=== PATIENT | female | born 1955 | race African-American/Black ===

== ENCOUNTER 2016-10-07 13:00 | Emergency (ER) | payer MEDICARE, OTHER ==
[~2016-10-07] VITALS: Wt 70.0 kg
[~2016-10-07 13:00] MED LIST: AMLO-145; ASPI-650; CARI350T29; HYDR-762 PO; HYDR-906 PO; MONT10TA21; ONDA4TAB35 PO; PARO40TA79; [UNRECOGNIZED DRUG - CODE]
== END 2016-10-07 15:59 | disposition left against medical advice (07) ==
LOC: E/R 13:00
DX: Z53.21 Procedure and treatment not carried out due to patient leaving prior to being seen by health care provider (principal)

== ENCOUNTER 2017-05-20 09:33 | Emergency (ER) | payer MEDICARE, OTHER ==
[~2017-05-20] VITALS: Ht 157.5 cm; Wt 76.5 kg
[2017-05-20 09:37] VITALS: Ht 157.5 cm; Wt 76.5 kg
--- NOTE | 2017-05-20 15:49 | ERD ---
ER Documentation Chief Complaint Date/Time DATE: 05/20/17 TIME: 15:44 Chief Complaint cwp x 2 days HPI Patient is a 61-year-old female who presents with gradual onset, constant, moderate, dull right anterior chest wall pain for 2 days. She states that the pain radiates up to the lateral and posterior neck, to the right shoulder and upper arm. She reports having paresthesia and pain in the right ring finger. She denies trauma. She denies weakness or numbness. She denies shortness of breath. She denies cough. She denies fever. She denies radiation to her back. The patient takes tramadol for chronic back pain, but states that her PMD told her that she will need to get future prescriptions from her back doctor. ROS All systems reviewed and are negative except as per history of present illness. Medications Home Meds Active Scripts Tramadol HCl (Tramadol HCl) 50 Mg Tablet, 50 MG PO Q4 Y for PAIN, #20 TAB Prov:RENE SOTO MD 05/20/17 Hydrocodone/Acetaminophen ([place] 5-325 Tablet) 1 Each Tablet, 1 TAB PO Q6H Y for PAIN, #7 TAB Prov:SHON PRIEST DO 08/18/16 Ondansetron Hcl* (Zofran* ODT) 4 mg -ODT Tab.disper, 4 MG PO Q6 Y for NAUSEA AND /OR VOMITING, #30 TAB Prov:ARMIDA DAWSON MD 09/25/15 Hydrocodone Bit-Acetaminophen* ([place]*) 10-325 Mg Tablet, 1 TAB PO Q6 Y for PAIN , #12 TAB Prov:ARMIDA DAWSON MD 09/25/15 Reported Medications Amlodipine Besylate* (Amlodipine Besylate*) 5 Mg Tablet, 5 to 10 mg daily 07/06/12 Paroxetine Hcl* (Paroxetine*) 40 Mg Tablet, daily 07/06/12 Carisoprodol* (Carisoprodol*) 350 Mg Tablet, bid prn 07/06/12 Hydrocodone Bit/Acetaminophen (Hydrocodone-Apap 7.5-750 Mg Tb) 1 Tab Tablet, every 12 hr prn 07/06/12 Montelukast Sodium* (Singulair*) 10 Mg Tablet, daily 07/06/12 Aspirin (Aspirin) 81 Mg Tablet, daily 07/06/12 Allergies Allergies: Coded Allergies: No Known Drug Allergy (Verified Allergy, Unknown, 08/18/16) Uncoded Allergies: NONE (Allergy, Mild, 07/08/10) PMhx/Soc Past medical history: Hypertension, hyperlipidemia, myasthenia gravis, chronic back pain Past surgical history: Lower extremity Social history: There is alcohol occasionally, remote prior history of cocaine use, smokes tobacco History of Surgery: Yes (foot surgery, colonoscopy) Anesthesia Reaction: No Hx Neurological Disorder: No Hx Respiratory Disorders: Yes (bronchitis, asthma,) Hx Cardiac Disorders: Yes (htn) Hx Psychiatric Problems: Yes (depression) Hx Miscellaneous Medical Probl: Yes (high cholesterol) Hx Alcohol Use: Yes Hx Substance Use: Yes (marijuana) Hx Tobacco Use: Yes FmHx Family History: No coronary disease, No diabetes Physical Exam Vitals Vital Signs Date Time Temp Pulse Resp B/P Pulse Ox O2 Delivery O2 Flow Rate FiO2 05/20/17 17:41 72 18 128/68 98 Room Air 05/20/17 09:37 98.2 86 18 128/74 99 Physical Exam Const: Alert, no acute distress Head: Atraumatic Eyes: Normal Conjunctiva, No pallor, no icterus ENT: Normal External Ears, Nose and Mouth. Neck: Full range of motion..~ No meningismus.Right paraspinal cervical muscle tenderness and spasm. Resp: Clear to auscultation bilaterally, No wheezes, no rales Cardio: Regular rate and rhythm, no murmurs. Right anterior chest wall tenderness, palpation reproduces pain. Tenderness over the sternoclavicular joint without erythema, edema, or warmth. Abd: Soft, non tender, non distended. Normal bowel sounds Skin: No petechiae or rashes Back: No midline or flank tenderness Ext: No cyanosis, or edema Neur: Awake and alert, Strength and sensation full bilateral upper extremities Psych: Normal Mood and Affect Results 24 hrs Current Medications Medications (Trade) Dose Ordered Sig/Amanda Route PRN Reason Start Time Stop Time Status Last Admin Dose Admin Tramadol HCl (Ultram) 50 mg ONCE ONCE PO 05/20/17 16:00 05/20/17 16:01 DC 05/20/17 15:56 Procedures/MDM EKG read by me: Time 936, rate 81 Rhythm: Normal sinus [place]: Normal Intervals: Normal ST-T waves: no ischemic changes Ectopy: No Q-waves: No Impression: No evidence of ischemia or arrhythmia. Left ventricular hypertrophy, poor R-wave progression, possible left atrial enlargement MDM: Patient is a 61-year-old female who presents with pain to the upper right anterior chest radiating to the lateral and posterior neck and right shoulder. It is 100% reproducible with light palpation. She has particular tenderness over the sternoclavicular joints without signs of infection. Chest x-ray and EKG are unremarkable. There are no features concerning for aortic dissection or pulmonary embolism. The patient has history of chronic pain issues and is on has previously taken tramadol. She is currently out of medication. I will give her a prescription for tramadol, and advised to follow-up closely with her PMD and return to the ER for new or worsening symptoms. She has no signs of neurological deficit to suggest significant radiculopathy although she does have some paresthesias in one finger. No workup for ACS was indicated based upon the patient's history and exam. Departure Diagnosis: Primary Impression: Chest wall pain Condition: RENE Hemphill MD May 20, 2017 15:49
[2017-05-20] MEDS ORDERED: traMADol 50 MG TAB PO ONE (16:00)
--- NOTE | 2017-05-20 16:04 | RADRPT ---
PROCEDURE: XR Chest. CLINICAL INDICATION: Chest pain. TECHNIQUE: Single frontal view. COMPARISON: 07/06/2012. FINDINGS: The lungs are clear. The heart size is normal. There is no pleural effusion. There is no pneumothorax. IMPRESSION: 1. Normal chest radiograph. 2. No change from 07/06/2012. RPTAT: QQ .Satish Donahue MD, MD Date Time Electronically viewed and signed by .Satish Donahue MD, MD on 05/20/2017 16:04 .R/
[2017-05-20] MEDS ORDERED: TRAM50TA2 PO (16:24)
[2017-05-20 17:41] VITALS: BP 128/68; PULSE 72; RESP 18
== END 2017-05-20 17:43 | disposition home or self-care (01) ==
LOC: E/R 09:33
DX: R07.89 Other chest pain (principal); I10 Essential (primary) hypertension; F17.210 Nicotine dependence, cigarettes, uncomplicated; J45.909 Unspecified asthma, uncomplicated; R40.2142 Coma scale, eyes open, spontaneous, at arrival to emergency department; R40.2252 Coma scale, best verbal response, oriented, at arrival to emergency department; R40.2362 Coma scale, best motor response, obeys commands, at arrival to emergency department; Z79.82 Long term (current) use of aspirin
CPT/HCPCS: 71010; 93005

== ENCOUNTER 2017-08-19 07:58 | Emergency (ER) | payer MEDICARE, OTHER ==
[~2017-08-19] VITALS: Ht 157.5 cm; Wt 78.0 kg
[~2017-08-19 07:58] MED LIST changes: +TRAM50TA2 PO
[2017-08-19 08:01] VITALS: Ht 157.5 cm; Wt 78.0 kg
[2017-08-19] MEDS ORDERED: HYDROCODONE/APAP (5/325) TAB PO ONE (08:30)
--- NOTE | 2017-08-19 09:15 | RADRPT ---
PROCEDURE: XR right rib series. CLINICAL INDICATION: Right rib pain. Right chest wall pain. TECHNIQUE: Three views of the right rib cage are available for review COMPARISON: None available FINDINGS: There is no evidence of fracture or dislocation. There is mild degenerative change of the right acromioclavicular joint with inferior marginal osteop hyte formation. No radiopaque foreign body is identified. The visualized portions of the underlying lung is clear. No pneumothorax identified. IMPRESSION: 1. Unremarkable right rib cage x-ray series. RPTAT: HLDM .Brian Hoffmann MD, Date Time Electronically viewed and signed by .Brian Hoffmann MD, on 08/19/2017 09:15 .M/
--- NOTE | 2017-08-19 10:16 | RADRPT ---
PROCEDURE: XR RIGHT SHOULDER. CLINICAL INDICATION: Right shoulder pain TECHNIQUE: 2 views of the right shoulder were performed. COMPARISON: None. FINDINGS: There is no evidence of acute fracture dislocation of the right shoulder. Bony mineralization and al ignment are unremarkable. Joint spaces are preserved. The acromioclavicular joint is intact. No sign ificant soft tissue swelling. IMPRESSION: 1. No evidence of acute fracture or dislocation of the right shoulder. RPTAT: AAPP Physician Nacho Date Time Electronically viewed and signed by Physician Nacho on 08/19/2017 10:16 JL/
[2017-08-19] MEDS ORDERED: HYDR-906 PO (10:20)
[2017-08-19] MEDS ORDERED: IBUP-1542 PO (10:20)
--- NOTE | 2017-08-19 10:26 | ERD ---
ER Documentation Chief Complaint Chief Complaint right shoulder pain x 5 days HPI 61-year-old female presents with right shoulder and rib cage pain. This is been going on for several weeks she states ever since she got a "bad adjustment from chiropractor." She denies any chest pain, palpitations,diaphoresis, or shortness of breath. She has not taken any medications for pain. No new injuries or trauma. No numbness or tingling. ROS All systems reviewed and are negative except as per history of present illness. Medications Home Meds Active Scripts Hydrocodone/Acetaminophen ([place] 5-325 Tablet) 1 Each Tablet, 1 TAB PO Q6H Y for PAIN, #15 TAB Prov:HILDA HORTA PA-C 08/19/17 Ibuprofen* (Motrin*) 600 Mg Tab, 600 MG PO Q6, #30 TAB Prov:IHLDA HORTA PA-C 08/19/17 Tramadol HCl (Tramadol HCl) 50 Mg Tablet, 50 MG PO Q4 Y for PAIN, #20 TAB Prov:RENE SOTO MD 05/20/17 Hydrocodone/Acetaminophen ([place] 5-325 Tablet) 1 Each Tablet, 1 TAB PO Q6H Y for PAIN, #7 TAB Prov:SHON PRIEST DO 08/18/16 Ondansetron Hcl* (Zofran* ODT) 4 mg -ODT Tab.disper, 4 MG PO Q6 Y for NAUSEA AND /OR VOMITING, #30 TAB Prov:ARMIDA DAWSON MD 09/25/15 Hydrocodone Bit-Acetaminophen* ([place]*) 10-325 Mg Tablet, 1 TAB PO Q6 Y for PAIN , #12 TAB Prov:ARMIDA DAWSON MD 09/25/15 Reported Medications Amlodipine Besylate* (Amlodipine Besylate*) 5 Mg Tablet, 5 to 10 mg daily 07/06/12 Paroxetine Hcl* (Paroxetine*) 40 Mg Tablet, daily 07/06/12 Carisoprodol* (Carisoprodol*) 350 Mg Tablet, bid prn 07/06/12 Hydrocodone Bit/Acetaminophen (Hydrocodone-Apap 7.5-750 Mg Tb) 1 Tab Tablet, every 12 hr prn 07/06/12 Montelukast Sodium* (Singulair*) 10 Mg Tablet, daily 07/06/12 Aspirin (Aspirin) 81 Mg Tablet, daily 07/06/12 Allergies Allergies: Coded Allergies: No Known Drug Allergy (Verified Allergy, Unknown, 08/18/16) Uncoded Allergies: NONE (Allergy, Mild, 07/08/10) PMhx/Soc History of Surgery: Yes (Bilat bunions, back) Anesthesia Reaction: No Hx Neurological Disorder: No Hx Respiratory Disorders: Yes (bronchitis, asthma,) Hx Cardiac Disorders: Yes (HTN) Hx Psychiatric Problems: Yes (depression) Hx Miscellaneous Medical Probl: Yes (High Cholesterol, Myastinia Gravis) Hx Alcohol Use: No Hx Substance Use: No Hx Tobacco Use: Yes Smoking Status: Light tobacco smoker FmHx Family History: No diabetes Physical Exam Vitals Vital Signs Date Time Temp Pulse Resp B/P Pulse Ox O2 Delivery O2 Flow Rate FiO2 08/19/17 08:01 98.1 79 18 154/86 99 Physical Exam INITIAL VITAL SIGNS: Reviewed by me GENERAL: Awake, alert and oriented x 4, well appearing, nontoxic, speaking in full sentences. No acute distress RESPIRATORY: Clear to auscultation bilaterally. Symmetric chest wall rise. No wheezing or rales. No accessory muscle use. CV: Regular rate and rhythm. No murmurs, rubs, or gallops. ABDOMEN: Soft, non-distended. Nontender. Negative [place]. Negative [place] point tenderness. No CVA tenderness bilaterally. No guarding. No rebound. EXTREMITIES: No clubbing or cyanosis. No edema. Moving all extremities normally. Nontender throughout her bilateral upper extremities. Right shoulder is no bony abnormality sensation to light touch is intact, no tenting over the clavicle BACK: No midline tenderness to palpation. No step-offs. Results 24 hrs Current Medications Medications (Trade) Dose Ordered Sig/Amanda Route PRN Reason Start Time Stop Time Status Last Admin Dose Admin Acetaminophen/ Hydrocodone Bitart ([place] (5/325)) 1 tab ONCE ONCE PO 08/19/17 08:30 08/19/17 08:31 DC 08/19/17 08:27 Procedures/MDM 61-year-old presents complaining of right shoulder pain after chiropractor. She is mildly elevated blood pressure 154/86 otherwise vitals are normal. Her pain is worse with movement and began after chiropractor therefore believe it is most likely muscular skeletal in nature. She has no chest pain shortness of breath palpitations or diaphoresis. She was given [place] for the improvement of her symptoms and x-rays of her shoulder ribs were ordered and they were negative. Patient counseled regarding my diagnostic impression and care plan. Prior to discharge all questions answered. Pt agrees with treatment plan and understands strict return precautions. Pt is instructed to follow up with primary care provider within 24-48 hours. Precautionary instructions provided including instructions to return to the ER if not improving or for any worsening or changing symptoms or concerns. Departure Diagnosis: Primary Impression: Shoulder pain Condition: Stable Patient Instructions: Shoulder Pain (Uncertain Cause) Additional Instructions: Call your primary care doctor TOMORROW for an appointment during the next 1-2 days.See the doctor sooner or return here if your condition worsens before your appointment time. HILDA HORTA PA-C Aug 19, 2017 10:26
== END 2017-08-19 10:24 | disposition home or self-care (01) ==
LOC: FTE 07:58
DX: M25.511 Pain in right shoulder (principal); I10 Essential (primary) hypertension; F17.210 Nicotine dependence, cigarettes, uncomplicated; J45.909 Unspecified asthma, uncomplicated; Z79.82 Long term (current) use of aspirin
CPT/HCPCS: 71100

== ENCOUNTER 2018-02-06 19:21 | Emergency (ER) | END 2018-02-06 23:22 | disposition home or self-care (01) ==

== ENCOUNTER 2019-01-29 14:45 | Emergency (ER) | payer MEDICARE, OTHER ==
[~2019-01-29] VITALS: Ht 154.9 cm; Wt 59.5 kg
[~2019-01-29 14:45] MED LIST changes: +HYDR-4011 PO; -HYDR-906 PO; +IBUP-1542 PO
[2019-01-29 14:47] VITALS: BP 149/68; PULSE 86; RESP 18; Ht 154.9 cm; Wt 59.5 kg
[2019-01-29] MEDS ORDERED: KETOROLAC 30 MG INJ IM STA (15:01)
--- NOTE | 2019-01-29 15:07 | ERD ---
ER Documentation Chief Complaint Chief Complaint R 5th toe pain/swelling after hitting on hard object 2 days ago HPI Patient is a 63 years old female presenting to the clinic with Right 5th toe pain x 2 days. Patient reports of hitting various objects (luggage, tables) within the last 2 days and admits to severe 10/10 pain with swelling. Patient denies taking OTC medication. ROS All systems reviewed and are negative except as per history of present illness. Medications Home Meds Active Scripts Meloxicam* (Meloxicam*) 7.5 Mg Tablet, 15 MG PO DAILY, #30 TAB Prov:CHRISTOPHER AVITIA PA-C 01/29/19 Ibuprofen* (Motrin*) 600 Mg Tab, 600 MG PO Q6, #30 TAB Prov:ANGELIQUEIRENE 02/06/18 Hydrocodone/Acetaminophen ([place] 5-325 Tablet) 1 Each Tablet, 1 TAB PO Q6H PRN for PAIN, #15 TAB Prov:HILDA HORTA PA-C 08/19/17 Ibuprofen* (Motrin*) 600 Mg Tab, 600 MG PO Q6, #30 TAB Prov:HILDA HORTA PA-C 08/19/17 Tramadol HCl (Tramadol HCl) 50 Mg Tablet, 50 MG PO Q4 PRN for PAIN, #20 TAB Prov:RENE SOTO MD 05/20/17 Hydrocodone/Acetaminophen ([place] 5-325 Tablet) 1 Each Tablet, 1 TAB PO Q6H PRN for PAIN, #7 TAB Prov:SHON PRIEST DO 08/18/16 Ondansetron Hcl* (Zofran* ODT) 4 mg -ODT Tab.disper, 4 MG PO Q6 PRN for NAUSEA AND/OR VOMITING, #30 TAB Prov:ARIMDA DAWSON MD 09/25/15 Hydrocodone Bit-Acetaminophen* ([place]*) 10-325 Mg Tablet, 1 TAB PO Q6 PRN for PAIN, #12 TAB Prov:ARMIDA DAWSON MD 09/25/15 Reported Medications Amlodipine Besylate* (Amlodipine Besylate*) 5 Mg Tablet, 5 to 10 mg daily 07/06/12 Paroxetine Hcl* (Paroxetine*) 40 Mg Tablet, daily 07/06/12 Carisoprodol* (Carisoprodol*) 350 Mg Tablet, bid prn 07/06/12 Hydrocodone Bit/Acetaminophen (Hydrocodone-Apap 7.5-750 Mg Tb) 1 Tab Tablet, every 12 hr prn 07/06/12 Montelukast Sodium* (Singulair*) 10 Mg Tablet, daily 07/06/12 Aspirin (Aspirin) 81 Mg Tablet, daily 07/06/12 Allergies Allergies: Coded Allergies: No Known Drug Allergy (Verified Allergy, Unknown, 08/18/16) Uncoded Allergies: NONE (Allergy, Mild, 07/08/10) PMhx/Soc History of Surgery: Yes (Bilat bunions, back) Anesthesia Reaction: No Hx Neurological Disorder: No Hx Respiratory Disorders: Yes (bronchitis, asthma,) Hx Cardiac Disorders: Yes (HTN) Hx Psychiatric Problems: Yes (depression) Hx Miscellaneous Medical Probl: Yes (High Cholesterol, Myastinia Gravis) Hx Alcohol Use: No Hx Substance Use: No Hx Tobacco Use: Yes Physical Exam Vitals Vital Signs Date Temp Pulse Resp B/P (MAP) Pulse Ox O2 O2 Flow FiO2 Time Delivery Rate 01/29/19 98.6 86 18 149/68 95 14:47 (95) Physical Exam Const: No acute distress Head: Atraumatic Eyes: Normal Conjunctiva Resp: Clear to auscultation bilaterally Cardio: Regular rate and rhythm, no murmurs Neur: Awake and alert Psych: Normal Mood and Affect Right 5th Toe Exam: Patient reports of pain before provider was able to palpate. Tenderness of entire digit to 5th metatarsal. No signs of gross trauma or injury. Skin intact. Results 24 hrs Current Medications Medications Dose Sig/Amanda Start Time Status Last (Trade) Ordered Route PRN Stop Time Admin Dose Reason Admin Ketorolac 30 mg ONCE STAT 01/29/19 DC 01/29/19 Tromethamine IM 15:01 01/29/19 15:10 (Toradol) 15:04 Procedures/MDM Patient was seen and evaluated for Right 5th toe injury. Images revealed Acute m ildly displaced and angulated fracture of the fifth proximal phalanx. Patient was given right 5th toe splint followed by crutches. Patient was advised to f/u with orthopedics. MECHELLE report indicated frequent narcotic prescription within the last 2 months. Departure Diagnosis: Primary Impression: Pain of toe Laterality: right Qualified Codes: M79.674 - Pain in right toe(s) Additional Impression: Toe fracture, right Encounter type: initial encounter Toe: lesser toe Fracture type: closed Phalanx: distal Fracture alignment: nondisplaced Qualified Codes: S92.534A - Nondisplaced fracture of distal phalanx of right lesser toe(s), initial encounter for closed fracture Condition: Stable Patient Instructions: Sprain Toe Referrals: [facility] Additional Instructions: Patient advised to return to the ED immediately for new or worsening symptoms. Patient advised to follow up with primary care provider in the next 24-48 hours. Patient verbalized understanding and agrees with treatment plan and course of action. If patient has no primary care they may follow up with [facility] + [facility] [address] [place] [id number] or [facility] [address] [place] [address] or [facility] [address] [place] [address] CHRISTOPHER AVITIA PA-C Jan 29, 2019 15:07
[2019-01-29] MEDS ORDERED: MELO7.5T38 PO (16:20)
== END 2019-01-29 17:44 | disposition home or self-care (01) ==
LOC: FTE 14:45
DX: S92.534A Nondisplaced fracture of distal phalanx of right lesser toe(s), initial encounter for closed fracture (principal); J45.909 Unspecified asthma, uncomplicated; I10 Essential (primary) hypertension; W22.8XXA Striking against or struck by other objects, initial encounter; Y92.9 Unspecified place or not applicable; Z79.82 Long term (current) use of aspirin; Z87.891 Personal history of nicotine dependence
CPT/HCPCS: 73630; 96372; 99284; J1885